=== PATIENT | female | born 1970 | race Caucasian/White ===

== ENCOUNTER 2016-08-10 15:29 | Emergency (ER) | payer OTHER ==
--- NOTE | 2016-08-10 15:46 | PDOC ---
Rapid Medical Evaluation Time Seen by Provider: 08/10/16 15:42 Medical Evaluation: 08/10/16 15:42 I have performed a brief in-person evaluation of this patient The patient presents with a chief complaint of cough. 4 days of coughing. Fever , chills. Pertinent physical exam findings: VS noted, lungs CTA b/l I have ordered a chest x-ray The patient will proceed to [facility] for further evaluation
[2016-08-10 15:49] VITALS: BP 146/84; PULSE 88; TEMP 98.6; BMI 35.4
[2016-08-10] MEDS ORDERED: ALBUTEROL SO4 0.083% IH SOL 2.5 MG/3 ML VIAL.NEB. NEB ONE (16:26)
--- NOTE | 2016-08-10 17:48 | PDOC ---
History of Present Illness - General Chief Complaint: Respiratory Stated Complaint: CHEST PAIN, COUGH Time Seen by Provider: 08/10/16 15:42 History Source: Patient Exam Limitations: Language Barrier - History of Present Illness Initial Comments: 08/10/16 17:44 ED staff interpreting; CC sore throat, fever, cough x 3 days Timing/Duration: denies: yesterday Severity: reports: mild Associated Symptoms: reports: fever/chills, nasal drainage, shortness of breath , sore throat. denies: denies symptoms, cough Past History - Past Medical History Allergies/Adverse Reactions: Allergies Allergy/AdvReac Type Severity Reaction Status Date / Time No Known Allergies Allergy Verified 08/10/16 15:46 Home Medications: Ambulatory Orders NK [No Known Home Medication] 08/10/16 - Psycho/Social/Smoking Cessation Hx Anxiety: No Suicidal Ideation: No Smoking History: Never smoked Have you smoked in the past 12 months: No Information on smoking cessation initiated: No Hx Alcohol Use: No Drug/Substance Use Hx: No Substance Use Type: None Review of Systems - Review of Systems Constitutional: Yes: Chills, Fever, Malaise HEENTM: Yes: Nose Pain, Nose Congestion, Throat Pain Respiratory: No: Cough, SOB with Exertion, Wheezing Cardiac (ROS): No: Symptoms Reported, Chest Pain ABD/GI: Yes: Symptoms Reported *Physical Exam - Vital Signs Last Vital Signs Temp Pulse Resp BP Pulse Ox 98.6 F 88 18 146/84 99 08/10/16 15:46 08/10/16 15:46 08/10/16 15:46 08/10/16 15:46 08/10/16 15:46 - Physical Exam General Appearance: Yes: Appropriately Dressed, Apparent Distress HEENT: positive: TMs Normal, Pharyngeal Erythema, Tonsillar Exudate, Tonsillar Erythema. negative: TM Bulging, TM Dull, TM Erythema Neck: positive: Supple, Lymphadenopathy (R), Lymphadenopathy (L). negative: Tender, Rigid Respiratory/Chest: positive: Lungs Clear. negative: Chest Tender Cardiovascular: positive: Regular Rhythm, Regular Rate Female Pelvic Exam: positive: normal external exam ED Treatment Course - ADDITIONAL ORDERS Additional order review: 08/10/16 16:20 Group A Strep Rapid Antigen - Final Throat - Medications Given in the ED: ED Medications Discontinued Medications Generic Name Dose Route Start Last Admin Trade Name Freq PRN Reason Stop Dose Admin Albuterol Sulfate 1 amp 08/10/16 16:26 08/10/16 16:27 Ventolin 0.083% Nebulizer Soln - NEB 08/10/16 16:27 1 amp ONCE ONE Administration Medical Decision Making - Medical Decision Making 08/10/16 17:46 gargle; lots of fluids; rest; advil for fever and body aches; see local MD next week if no better *DC/Admit/Observation/Transfer Diagnosis at time of Disposition: Acute streptococcal pharyngitis - Discharge Dispostion Disposition: HOME Condition at time of disposition: Stable Admit: No - Patient Instructions Additional Instructions: gargle, lots of fluids; rest; advil 400mg 3 times daily Print Language: GABONESE - Post Discharge Activity Work/School Note: Back to Work
[2016-08-10] MEDS ORDERED: AMOX TR/POT CLAV 875MG/125MG TABLETS (FP) ONE (17:56)
[2016-08-10] MEDS ORDERED: IBUPROFEN 600 MG TABLET (FP) PO ONE (17:56)
[2016-08-10] MEDS ORDERED: IBUPROFEN 400 MG TABLET (FP) PO ONE (17:56)
[2016-08-10] MEDS ORDERED: AMOX TR/POT CLAV 875MG/125MG TABLETS (FP) PO ONE (17:56)
== END 2016-08-10 18:06 | disposition home or self-care (01) ==
LOC: JERFT 15:29
DX: J02.0 Streptococcal pharyngitis (principal); B95.0 Streptococcus, group A, as the cause of diseases classified elsewhere
CPT/HCPCS: 71020-TC; 87070; 87430; 99281-25

== ENCOUNTER 2022-07-26 19:46 | Emergency (ER) | payer OTHER ==
[2022-07-26 19:55] VITALS: BP 148/79; PULSE 80; RESP 17; TEMP 98.7; BMI 31.8
[2022-07-26] MEDS ORDERED: ACETAMINOPHEN 500 MG TABLET (FP) PO ONE (22:41)
[2022-07-26] MEDS ORDERED: KETOROLAC TROMETHAMINE 30 MG/1 ML VIAL IM ONE (22:41)
[2022-07-26] MEDS ORDERED: CLINDAMYCIN HCL 150 MG CAPSULE (FP) PO ONE (22:41)
[2022-07-26] MEDS ORDERED: KETOROLAC TROMETHAMINE 30 MG/1 ML VIAL ONE ×2 (23:39→23:40)
[2022-07-26] MEDS ORDERED: CLINDAMYCIN HCL 150 MG CAPSULE (FP) ONE (23:39)
[2022-07-26] MEDS ORDERED: ACETAMINOPHEN 500 MG TABLET (FP) ONE (23:40)
== END 2022-07-26 23:58 | disposition home or self-care (01) ==
LOC: JERFT 19:46
PROC: 3E023GC Introduction of Other Therapeutic Substance into Muscle, Percutaneous Approach (ICD-10-PCS; principal; 2022-07-26)
DX: M79.671 Pain in right foot (principal)
CPT/HCPCS: 73630-TC-RT-FY; 96372; 99284-25